=== PATIENT | female | born 1960 | race African-American/Black ===

== ENCOUNTER → 2020-10-08 | Day surgery (SDC) | payer MEDICARE, OTHER ==
[~2020-10-08] MED LIST: ALBUTEROL NEB; BUPIVACAINE 0.25% 30ML SDV ONE; BUSPIRONE HCL10 MG PO; CETIRIZINE HCL10 MG PO; CLINDAMYCIN PHOS 900MG/ 50ML 50 ML IV ONE; CRESTOR10 MG PO; FUROSEMIDE40 MG PO; HYZAAR 100-12.1 EACH PO; METOPROLOL TART50 MG PO; NEURONTIN400 MG PO; OMEPRAZOLE40 MG PO; ONDANSETRON ODT8 MG PO; SYMBICORT 16010.2 GM INH
[2020-10-08 07:04] LABS: BASOPHILS # (AUTO) 0.1 (0.0-0.1); BASOPHILS % 1.6 % (0.0-1.0); EOSINOPHILS # (AUTO) 0.2 (0.0-0.4); HEMATOCRIT 28.1 % (34.2-44.1); HEMOGLOBIN 8.3 g/dL (12.0-16.0); LYMPHOCYTES # (AUTO) 2.5 (1.0-3.2); LYMPHOCYTES % 39.3 % (18.0-39.1); MEAN CORPUSCULAR HEMOGLOBIN 20.8 pg (28-32); MEAN CORPUSCULAR HGB CONC 29.5 g/dL (31-35); MEAN CORPUSCULAR VOLUME 70.3 fL (81-99); MONOCYTES # (AUTO) 0.6 (0.2-0.8); MONOCYTES % 9.6 % (4.4-11.3); NEUTROPHILS # (AUTO) 2.9 (2.1-6.9); NEUTROPHILS % 46.2 % (38.7-80.0); PLATELET COUNT 356 x10e3/uL (140-360); RED CELL DISTRIBUTION WIDTH 23.8 % (11.7-14.4)
[2020-10-08 07:14] LABS: ANION GAP 19.9 mmol/L (8-16); CALCIUM 8.7 mg/dL (8.4-10.2); CREATININE, SERUM 0.67 mg/dL (0.57-1.11)
[2020-10-08 07:23] LABS: POTASSIUM 2.9 mmol/L (3.5-5.1)
[2020-10-08 10:49] VITALS: BP 122/76
[2020-10-08 13:59] LABS: EOSINOPHILS % (MANUAL) 2 % (0-7); LYMPHOCYTES % (MANUAL) 38 % (19-48); MONOCYTES % (MANUAL) 7 % (3.4-9.0); NEUTROPHILS % (MANUAL) 52 % (40-74)
[2020-10-08 14:00] LABS: ANISOCYTOSIS MODERATE; BURR CELLS SLIGHT; HYPOCHROMASIA MODERATE; PLATELET ESTIMATE ADEQUATE; RBC MORPHOLOGY COMMENT ABNORMAL; TARGET CELLS FEW
[2020-10-08 14:01] LABS: ELLIPTOCYTE, RBC SLIGHT; OVALOCYTES FEW; PLATELET MORPHOLOGY COMMENT NORMAL; POLYCHROMASIA FEW; SCHISTOCYTES FEW
== END | disposition home or self-care (01) ==
LOC: OR 05:21
PROVIDERS: ATTEND Specialist
DX: S82.401B Unspecified fracture of shaft of right fibula, initial encounter for open fracture type I or II (principal); M06.9 Rheumatoid arthritis, unspecified; J45.909 Unspecified asthma, uncomplicated; I72.9 Aneurysm of unspecified site; E78.5 Hyperlipidemia, unspecified; I11.0 Hypertensive heart disease with heart failure; I50.9 Heart failure, unspecified; I25.2 Old myocardial infarction; I25.10 Atherosclerotic heart disease of native coronary artery without angina pectoris; K21.9 Gastro-esophageal reflux disease without esophagitis; F17.210 Nicotine dependence, cigarettes, uncomplicated; X58.XXXA Exposure to other specified factors, initial encounter; Z20.822 Contact with and (suspected) exposure to COVID-19; Z86.73 Personal history of transient ischemic attack (TIA), and cerebral infarction without residual deficits; Z86.2 Personal history of diseases of the blood and blood-forming organs and certain disorders involving the immune mechanism
CPT/HCPCS: 27726; 36415; 76000; 80048; 85025; C1713 ×5; U0002